=== PATIENT | female | born 1995 | race Caucasian/White ===

== ENCOUNTER 2017-01-14 15:54 | Emergency (ER) | payer MEDICAID | END 2017-01-14 17:28 | disposition left against medical advice (07) | LOC: ED 15:54 | DX: Z53.21 Procedure and treatment not carried out due to patient leaving prior to being seen by health care provider (principal) ==

== ENCOUNTER 2017-03-30 21:37 | Emergency (ER) | payer SELFPAY ==
[2017-03-31 00:17] VITALS: BP 113/59
== END 2017-03-31 00:17 | disposition home or self-care (01) ==
LOC: ED 21:37
DX: R07.89 Other chest pain (principal); R05 Cough; R50.9 Fever, unspecified; F41.9 Anxiety disorder, unspecified; Z79.3 Long term (current) use of hormonal contraceptives
CPT/HCPCS: Q0162

== ENCOUNTER 2017-11-13 08:10 | Emergency (ER) | payer MEDICAID ==
[~2017-11-13] VITALS: Ht 157.5 cm; Wt 53.5 kg
[2017-11-13 08:22] VITALS: Ht 157.5 cm; Wt 53.5 kg
[2017-11-13 10:28] VITALS: BP 110/54
== END 2017-11-13 10:28 | disposition home or self-care (01) ==
LOC: ED 08:10
DX: J02.9 Acute pharyngitis, unspecified (principal); J98.01 Acute bronchospasm; F41.9 Anxiety disorder, unspecified
CPT/HCPCS: J2930; J7613; J7644

== ENCOUNTER 2018-03-05 10:45 | Emergency (ER) | payer MEDICAID ==
[~2018-03-05] VITALS: Ht 154.9 cm; Wt 52.2 kg
[2018-03-05 10:51] VITALS: Ht 154.9 cm; Wt 52.2 kg
[2018-03-05 13:33] VITALS: BP 110/68
== END 2018-03-05 13:33 | disposition home or self-care (01) ==
LOC: ED 10:45
DX: J06.9 Acute upper respiratory infection, unspecified (principal)

== ENCOUNTER 2018-10-09 09:33 | Emergency (ER) | payer MEDICAID ==
[~2018-10-09] VITALS: Ht 154.9 cm; Wt 53.1 kg
[2018-10-09 09:42] VITALS: BP 103/59; Ht 154.9 cm; Wt 53.1 kg
== END 2018-10-09 10:23 | disposition home or self-care (01) ==
LOC: ED 09:33
DX: J06.9 Acute upper respiratory infection, unspecified (principal); F41.9 Anxiety disorder, unspecified
CPT/HCPCS: 87804

== ENCOUNTER 2019-01-25 09:22 | Emergency (ER) | payer OTHER ==
[~2019-01-25] VITALS: Ht 154.9 cm; Wt 50.3 kg
[2019-01-25 09:29] VITALS: BP 107/66; Ht 154.9 cm; Wt 50.3 kg
== END 2019-01-25 11:28 | disposition home or self-care (01) ==
LOC: ED 09:22
DX: N63.0 Unspecified lump in unspecified breast (principal); F41.9 Anxiety disorder, unspecified; Z33.1 Pregnant state, incidental
CPT/HCPCS: 76641

== ENCOUNTER 2019-01-28 10:47 | Emergency (ER) | payer OTHER ==
[~2019-01-28] VITALS: Ht 154.9 cm; Wt 48.6 kg
[2019-01-28 11:15] VITALS: Ht 154.9 cm; Wt 48.6 kg
[2019-01-28 12:26] LABS: CALCIUM 9.4 mg/dL (8.5-10.1); CHLORIDE SERUM 101 mmol/L (98-107); CREATININE SERUM 0.6 mg/dL (0.6-1.0); GFR1 > 60 mL/min; GLUCOSE SERUM 96 mg/dL (74-106); POTASSIUM SERUM 3.9 mmol/L (3.5-5.1); SODIUM SERUM 136 mmol/L (136-145)
[2019-01-28 12:26] LABS: UA SPECIFIC GRAVITY 1.025 (1.005-1.035); microscopic required? YES; urine erythrocyte NEGATIVE (NEGATIVE)
[2019-01-28 12:27] LABS: BASOPHIL % 0.3 % (0-2); PLATELET COUNT 241 x10^3mcL (130-400); RED CELL DISTRIBUTION WIDTH 12.4 % (11.5-14.5)
[2019-01-28 12:30] LABS: ALBUMIN 4.2 g/dL (3.4-5.0); ALKALINE PHOSPHATASE 77 U/L (46-116); ALT/SGPT 18 U/L (14-59); AMYLASE 112 U/L (25-115); AST/SGOT 16 U/L (15-37); LIPASE 104 IU/L (73-393); TOTAL PROTEIN, SERUM 8.3 g/dL (6.4-8.2)
[2019-01-28 15:12] VITALS: BP 105/63
== END 2019-01-28 15:12 | disposition home or self-care (01) ==
LOC: ED 10:47
PROVIDERS: Specialist
DX: O21.0 Mild hyperemesis gravidarum (principal); F41.9 Anxiety disorder, unspecified; Z3A.01 Less than 8 weeks gestation of pregnancy
CPT/HCPCS: J2405; J7030

== ENCOUNTER 2019-05-04 07:11 | Emergency (ER) | payer MEDICAID ==
[~2019-05-04] VITALS: Ht 152.4 cm; Wt 55.8 kg
[2019-05-04 07:17] VITALS: Ht 152.4 cm; Wt 55.8 kg
[2019-05-04 08:34] LABS: UA SPECIFIC GRAVITY <=1.005 (1.005-1.035); microscopic required? YES; urine erythrocyte NEGATIVE (NEGATIVE)
[2019-05-04 09:33] VITALS: BP 100/62
== END 2019-05-04 09:33 | disposition home or self-care (01) ==
LOC: ED 07:11
PROVIDERS: Emergency Medicine
DX: O23.42 Unspecified infection of urinary tract in pregnancy, second trimester (principal); O99.342 Other mental disorders complicating pregnancy, second trimester; F41.9 Anxiety disorder, unspecified; Z3A.20 20 weeks gestation of pregnancy
CPT/HCPCS: J0696

== ENCOUNTER 2019-05-13 20:38 | Emergency (ER) | payer MEDICAID ==
[~2019-05-13] VITALS: Ht 157.5 cm; Wt 56.7 kg
[2019-05-13 21:05] VITALS: Ht 157.5 cm; Wt 56.7 kg
[2019-05-13 22:16] VITALS: BP 102/70
== END 2019-05-13 22:16 | disposition home or self-care (01) ==
LOC: ED 20:38
DX: O99.712 Diseases of the skin and subcutaneous tissue complicating pregnancy, second trimester (principal); S90.561A Insect bite (nonvenomous), right ankle, initial encounter; O99.342 Other mental disorders complicating pregnancy, second trimester; F41.9 Anxiety disorder, unspecified; Z3A.20 20 weeks gestation of pregnancy; W57.XXXA Bitten or stung by nonvenomous insect and other nonvenomous arthropods, initial encounter; Y93.89 Activity, other specified; Y92.89 Other specified places as the place of occurrence of the external cause; Y99.8 Other external cause status